=== PATIENT | female | born 1985 | race American Indian/Alaskan Native ===

== ENCOUNTER 2019-09-21 13:12 | Emergency (ER) | payer MEDICAID ==
[2019-09-21 13:30] VITALS: BP 161/80
[2019-09-21 13:59] LABS: Bilirubin,Urine NEG (Negative); Blood,Urine NEG (Negative); Color,Urine Yellow (Yellow); Protein,Urine <15 mg/dL mg/dL (Negative); Urobilinogen,Urine < 2.0 mg/dL (<2.0); WBC,Urine < 1.0 /HPF (0.0-6.0)
[2019-09-21 14:18] LABS: HCG Qualitative,Urine Negative (Negative)
== END 2019-09-21 14:36 | disposition left against medical advice (07) ==
LOC: ED 13:12
DX: R10.9 Unspecified abdominal pain (principal); Z53.21 Procedure and treatment not carried out due to patient leaving prior to being seen by health care provider
CPT/HCPCS: 81001; 81025